=== PATIENT | male | born 1950 | race Caucasian/White ===

== ENCOUNTER → 2016-05-08 | Outpatient (CLI) | payer MEDICARE ==
[~2016-05-08] MED LIST: ADVAIR DISKUS 11 DSK INH; CELEXA10 MG PO; IBU-8800 MG PO; IBU800 MG PO; NEXIUM10 MG/PACK PO; PERCOCET 325 MG1 TA7 PO
== END | disposition home or self-care (01) ==
LOC: CARD 10:18
DX: K21.9 Gastro-esophageal reflux disease without esophagitis (principal); M54.5 Low back pain; F41.1 Generalized anxiety disorder; R01.1 Cardiac murmur, unspecified

== ENCOUNTER → 2017-11-04 | Outpatient (CLI) | payer MEDICARE | END | disposition home or self-care (01) | LOC: CARD 03:21 | DX: I08.2 Rheumatic disorders of both aortic and tricuspid valves (principal); R09.89 Other specified symptoms and signs involving the circulatory and respiratory systems; R01.1 Cardiac murmur, unspecified ==

== ENCOUNTER → 2018-11-29 | Outpatient (CLI) | payer MEDICARE ==
[~2018-11-29] MED LIST changes: +BREO ELLIPTA 11 EACH INH; +FLONASE ALLERG9.9 ML NAS; +NEXIUM20 M1 PO
== END ==
LOC: RAD 10:32
DX: J43.9 Emphysema, unspecified (principal); R50.9 Fever, unspecified; L98.2 Febrile neutrophilic dermatosis [Sweet]; R35.0 Frequency of micturition; R53.1 Weakness; D46.9 Myelodysplastic syndrome, unspecified; E11.9 Type 2 diabetes mellitus without complications; R06.02 Shortness of breath

== ENCOUNTER 2019-07-31 20:26 | Emergency (ER) | payer MEDICARE ==
[2019-07-31 21:26] LABS: HEMATOCRIT 33.4 % (42.0-52.0); MEAN CELL VOLUME 108.1 fl (80.0-94.0); MEAN CORPUSCULAR HGB 35.3 pg (27.0-31.0); MEAN CORPUSCULAR HGB CONC 32.6 g/dl (33.0-37.0); MEAN PLATELET VOLUME 9.7 fl (9.6-12.3); PLATELET COUNT AUTOMATED 144 10*3/uL (130-400); RED BLOOD COUNT 3.09 10*6/uL (4.50-5.90); RED CELL DISTRI WIDTH 15.7 % (0-14.5); WHITE BLOOD COUNT 4.9 10*3/uL (4.8-10.8)
[2019-07-31 21:41] LABS: ALKALINE PHOSPHATASE 94 U/L (45-117); BUN 13 mg/dl (7-24); CHLORIDE 100 mmol/L (98-107); CREATININE 0.98 mg/dL (0.70-1.30); SGOT/AST 26 IU/L (3-35); SGPT/ALT 40 U/L (12-78); SODIUM 133 mmol/L (136-145); TOTAL PROTEIN 7.4 gm/dL (6.4-8.2)
[2019-07-31 21:55] LABS: PLATELET SUFFICIENCY NORMAL (NORMAL); TOTAL CELLS COUNTED 100 #CELLS
== END 2019-07-31 22:50 | disposition home or self-care (01) ==
LOC: ED 20:26
PROVIDERS: Nurse Practitioner Family
DX: R04.0 Epistaxis (principal); I10 Essential (primary) hypertension; K21.9 Gastro-esophageal reflux disease without esophagitis; J44.9 Chronic obstructive pulmonary disease, unspecified; E78.00 Pure hypercholesterolemia, unspecified; Z79.899 Other long term (current) drug therapy

== ENCOUNTER → 2020-09-16 | Outpatient (CLI) | payer MEDICARE | END | disposition home or self-care (01) | LOC: CARD 09:03 | PROVIDERS: ATTEND Physician Assistant | DX: I08.0 Rheumatic disorders of both mitral and aortic valves (principal) ==

== ENCOUNTER 2024-01-29 11:14 | Emergency (ER) | payer MEDICARE ==
[~2024-01-29] VITALS: Ht 172.7 cm; Wt 77.1 kg
[2024-01-29] MEDS ORDERED: Ketorolac Tromethamine 15 MG/ML VIAL IV ONE (11:35)
[2024-01-29] MEDS ORDERED: IOHEXOL 300 MG/ML 100 ML VIAL IV ONE (11:35)
[2024-01-29] MEDS ORDERED: Ondansetron Hydrochloride 4 MG/2 ML VIAL IV ONE (11:35)
[2024-01-29] MEDS ORDERED: HYDROmorphONE Hydrochloride 1 MG/ML SYR IV ONE (11:35)
[2024-01-29] MEDS ORDERED: SODIUM CHLORIDE 0.9% 1,000 ML IV ONE (11:35)
[2024-01-29 11:45] LABS: HEMATOCRIT 34.9 % (42.0-52.0); MEAN CELL VOLUME 104.8 fl (80.0-94.0); MEAN CORPUSCULAR HGB 34.2 pg (27.0-31.0); MEAN CORPUSCULAR HGB CONC 32.7 g/dl (33.0-37.0); MEAN PLATELET VOLUME 9.6 fl (9.6-12.3); PLATELET COUNT AUTOMATED 119 10*3/uL (130-400); RED BLOOD COUNT 3.33 10*6/uL (4.50-5.90); RED CELL DISTRI WIDTH 14.7 % (0-14.5); WHITE BLOOD COUNT 16.3 10*3/uL (4.8-10.8)
[2024-01-29 11:53] LABS: MANUAL DIFF REFLEX YES
[2024-01-29 12:03] LABS: PLATELET SUFFICIENCY LOW (NORMAL); POLYCHROMASIA SLIGHT; TOTAL CELLS COUNTED 100 #CELLS
[2024-01-29 12:16] LABS: BUN 18 mg/dl (9-23); CHLORIDE 96 mmol/L (98-107); POTASSIUM 4.4 mmol/L (3.4-5.1)
[2024-01-29] MEDS ORDERED: HYDROmorphONE Hydrochloride 0.5 MG/0.5 ML SYRINGE IV ONE (14:45)
[2024-01-29] MEDS ORDERED: IBU800 M2 PO (14:55)
[2024-01-29] MEDS ORDERED: TYLENOL EXTRA500 MG PO (14:55)
== END 2024-01-29 15:22 | disposition home or self-care (01) ==
LOC: ED 11:14
PROVIDERS: Emergency Medicine
DX: G89.18 Other acute postprocedural pain (principal); M51.26 Other intervertebral disc displacement, lumbar region; I10 Essential (primary) hypertension; K21.9 Gastro-esophageal reflux disease without esophagitis; J44.9 Chronic obstructive pulmonary disease, unspecified; M19.90 Unspecified osteoarthritis, unspecified site; E78.00 Pure hypercholesterolemia, unspecified; F17.200 Nicotine dependence, unspecified, uncomplicated; Z98.890 Other specified postprocedural states